=== PATIENT | female | born 1990 | race Caucasian/White ===

== ENCOUNTER 2019-11-17 19:34 | Emergency (ER) | payer SELFPAY ==
--- NOTE | 2019-11-17 19:51 | Emergency Department Record ---
History of Present Illness - General Chief complaint: Dental Stated complaint: DENTAL ABCESS Time Seen by Provider: 11/17/19 19:45 Source: Patient Mode of Arrival: Ambulatory Limitations: No limitations - History of Present Illness Initial comments: 29 yo female presents with dental pain. The patient has chronic wide spread dental decay. She developed the symptoms over the last three days. She has mild swelling over the right maxillary area. No fever. No eye pain. No trismus. She has not called a dentist at this point. No neck pain or neck s welling. MD complaint: Tooth pain -: Days(s) Location: Tooth # Severity: Moderate Quality: Aching Consistency: Constant Improves with: None Worsens with: Eating Context- Dental: History of dental caries - Related Data Previous Rx's Medication Instructions Recorded Penicillin V Potassium 500 mg PO QID #40 tablet 11/17/19 Allergies Allergy/AdvReac Type Severity Reaction Status Date / Time Flu Shot Allergy PT UNSURE Uncoded 11/17/19 19:40 OF REACTION Peroxide Allergy PT UNSURE Uncoded 11/17/19 19:40 OF REACTION Travel/Exposure Screening - Travel/Exposure Within Last 30 Days Have you traveled within the last 30 days?: No - Travel/Exposure Within Last Year Have you traveled outside the [place] in the last year?: No - Additonal Travel/Exposure Details Have you been exposed to anyone with a communicable illness?: No Review of Systems Constitutional: Denies: Chills, Fever, Malaise, Weakness Eyes: Denies: Eye discharge ENT: Reports: As per HPI, Dental pain. Denies: Congestion, Throat pain Respiratory: Denies: Cough, Dyspnea, Stridor, Wheezes Cardiovascular: Denies: Chest pain, Palpitations, Syncope Endocrine: Denies: Fatigue Gastrointestinal: Denies: Abdominal pain, Diarrhea, Nausea, Vomiting Genitourinary: Denies: Dysuria, Urgency Musculoskeletal: Denies: Arthralgia, Back pain, Myalgia Skin: Denies: Bruising, Change in color, Rash Neurological: Denies: Headache Psychiatric: Denies: Anxiety Hematological/Lymphatic: Denies: Easy bleeding, Easy bruising Past Medical History - SOCIAL HISTORY Smoking Status: Current every day smoker Alcohol Use: None Drug Use Detail:: Marijuana - RESPIRATORY Hx Respiratory Disorders: Yes Hx Asthma: Yes Hx Pulmonary Embolism: Yes (right lung) - CARDIOVASCULAR Hx Cardio Disorders: No - NEURO Hx Neuro Disorders: Yes Hx Headaches: Yes (hx) - GI Hx GI Disorders: Yes Hx Reflux: Yes - Hx Genitourinary Disorders: No - ENDOCRINE Hx Endocrine Disorders: No - MUSCULOSKELETAL Hx Musculoskeletal Disorders: No - PSYCH Hx Psych Problems: Yes Hx Anxiety: Yes Hx Depression: Yes - HEMATOLOGY/ONCOLOGY Hx Hematology/Oncology Disorders: No Family Medical History Any Significant Family History?: No Family Hx Comment (NOT TO BE USED IN PLACE OF ITEMS BELOW): unable to obtain info Physical Exam - General General Appearance: Alert, Oriented x3, Cooperative, No acute distress Limitations: No limitations - Head Head exam: Atraumatic, Normal inspection Image of Face/Head: 1 - mild swelling and mild tenderness, supple neck, no lymphadenopathy of the neck - Eye Eye exam: Normal appearance, PERRL. negative: Conjunctival injection, Scleral icterus - ENT ENT exam: Normal exam, Mucous membranes moist, Normal orophraynx Ear exam: Normal external inspection Nasal Exam: Normal inspection Mouth exam: Normal external inspection, Tongue normal. negative: Drooling, Muffled voice, Tongue elevation, Trismus Teeth exam: negative: Normal inspection Throat exam: Normal inspection - Neck Neck exam: Normal inspection, Full ROM. negative: Lymphadenopathy, Tenderness - Respiratory Respiratory exam: Normal lung sounds bilaterally. negative: Respiratory distress - Cardiovascular Cardiovascular Exam: Regular rate, Normal rhythm, Normal heart sounds. negative: Diastolic murmur, Systolic murmur - Neurological Neurological exam: Alert, Oriented X3 - Psychiatric Psychiatric exam: Normal affect, Normal mood - Skin Skin exam: Dry, Intact, Normal color, Warm Course - Reevaluation(s) Reevaluation #1: The patient was given Penicillin in the ED as well as the second dose A dental referral was faxed to the [facility]. Rx for Penicillin was provided 11/17/19 Disposition Disposition: Discharge Clinical Impression: Dental abscess Disposition: Home, Self-Care Condition: (1) Good Instructions: Dental Abscess (ED) Additional Instructions: Review this ER visit and the tests performed with your family doctor Call the dental referral for the next available follow up appointment this week Return to the ER for a recheck immediately if worse, any new concerns or questions Take the prescriptions provided as directed Prescriptions: Penicillin V Potassium 500 mg PO QID #40 tablet Forms: Patient Portal Access Time of Disposition: 20:00 Quality - Quality Measures Quality Measures: N/A - Blood Pressure Screening Does Patient Have Any of the Following: No Blood Pressure Classification: Hypertensive Reading Systolic Measurement: 143 Diastolic Measurement: 73 Screening for High Blood Pressure: < Pre-Hypertensive BP, F/U Documented > [[id number]] Pre-Hypertensive Follow-up Interventions: Referral to alternative/primary care provider.
[2019-11-17] MEDS ORDERED: PENICILLIN V POTASSIUM 250 MG TAB PO ONE ×2 (19:52)
== END 2019-11-17 20:06 | disposition home or self-care (01) ==
LOC: ER 19:34
DX: K04.7 Periapical abscess without sinus (principal); F17.210 Nicotine dependence, cigarettes, uncomplicated
CPT/HCPCS: 99283